=== PATIENT | male | born 1935 | race Caucasian/White ===

== ENCOUNTER 2018-12-03 20:23 | Observation (INO) | payer MEDICARE, BC ==
[2018-12-03 21:00] LABS: #Basophils 0.1 thou/uL (0.0-0.2); #Eosinphils 0.3 thou/uL (0.0-0.7); #Neutrophils 4.3 thou/uL (1.40-6.50); %Basophils 1.5 % (0.0-1.0); %Eosinophils 3.8 % (0.0-10.0); %Lymphocytes 15.5 % (21.0-51.0); %Monocytes 14.9 % (0.0-10.0); %Neutrophils 64.4 % (42.0-75.0); Hemoglobin 13.3 g/dL (14.0-18.0); Mean Corpuscular HGB CONC 34.5 g/dL (32.0-36.0); Mean Corpuscular Hemoglobin 32.3 pg (27.0-31.0); Mean Corpuscular Volume 93.6 fL (78.0-98.0); Mean Platelet Volume 8.7 fL (7.4-10.4); Platelet Count 215 thou/uL (130-400); Red Blood Cell (RBC) Count 4.11 mill/uL (4.70-6.10); White Blood Cell (WBC) Count 6.7 thou/uL (4.8-10.8)
--- NOTE | 2018-12-03 21:09 | RAD ---
2 views chest: 12/03/2018 COMPARISON: None HISTORY: Cough FINDINGS: Mild increased linear interstitial density with pulmonary hyperinflation suggesting air tra pping. Midline sternotomy wires, mediastinal clips, and transvenous AICD noted. No pneumothorax, pleural fluid, focal consolidation, or alveolar edema. There is degenerative change of the mid thoracic spine and there is atherosclerotic calcification of the abdominal aorta. IMPRESSION: Chronic-appearing findings as described above. No focal consolidation or alveolar edema.
[2018-12-03 21:14] LABS: ALT (SGPT) 75 U/L (8-55); AST (SGOT) 41 U/L (5-34); Albumin 3.9 g/dL (3.4-4.8); Alkaline Phosphatase 72 U/L (40-150); Anion Gap 15 mmol/L (10-20); BUN (Urea Nitrogen) 18 mg/dL (8.4-25.7); Bilirubin, Total 0.6 mg/dL (0.2-1.2); Calc. Creatinine Clearance 0 mL/min (70-130); Calcium 8.7 mg/dL (7.8-10.44); Carbon Dioxide 26 mmol/L (23-31); Chloride 100 mmol/L (98-107); Estimated GFR-MDRD 44; Globulin 3.1 g/dL (2.4-3.5); Glucose 111 mg/dL (83-110); Potassium 4.6 mmol/L (3.5-5.1); Sodium 136 mmol/L (136-145)
[2018-12-03] MEDS ORDERED: Albuterol Sulfate 2.5 mg/0.5 ml Neb ONE (21:38)
[2018-12-03] MEDS ORDERED: methylPREDNISolone Sod Succ/PF 125 MG/2 ML VIAL ONE (21:40)
[2018-12-03] MEDS ORDERED: Water For Inject, Bacteriostat 30 ML ONE (21:41)
[2018-12-04 00:22] VITALS: BMI 29.7
[2018-12-04 01:20] LABS: CKMB 4.1 ng/mL (0-6.6)
[2018-12-04] MEDS ORDERED: Albuterol Sulfate 2.5 mg/3 ml Neb NEB PRN (03:49)
[2018-12-04 08:55] VITALS: BP 117/61; TEMP 97.6
[2018-12-04] MEDS ORDERED: Finasteride 5 MG TAB PO SCH (09:00)
[2018-12-04] MEDS ORDERED: Loratadine 10 MG TAB PO SCH (09:00)
[2018-12-04] MEDS ORDERED: Apixaban 2.5 MG TAB PO SCH (09:00)
[2018-12-04] MEDS ORDERED: Atorvastatin Calcium 40 MG TAB PO SCH (09:00)
[2018-12-04] MEDS ORDERED: Donepezil HCl 10 MG TAB PO SCH (09:00)
[2018-12-04] MEDS ORDERED: Amiodarone 200 MG TAB PO SCH (09:00)
--- NOTE | 2018-12-04 10:29 | DIS ---
DATE OF ADMISSION: 12/03/2018 DATE OF DISCHARGE: 12/04/2018 CHIEF COMPLAINT: Cough. PRIMARY CARE PHYSICIAN: Dr. Fry in [place]. HAM CURER: Dr. Marie in [place]. SHORT-STAY SUMMARY: Mr. Contreras is an 83-year-old man, who reported to the emergency room in [facility] with an onset of cough and runny nose yesterday. The patient's spouse reports that he has had pneumonia 6 years ago, who reports they have been dealing with dehydration and he has been hospitalized twice in the last several months with this. Family reports that yesterday morning he had a productive cough of white phlegm, clear runny nose and congestion. He denied any fever. He reported a little bit of shortness of breath, clammy. Denied any chest pain. Denied any pain anywhere. Does wear oxygen at night. Does report some rhinorrhea. During evaluation in the ER, EKG showed paced rhythm, beats per minute 70, no ectopics. Good pacer capture. He was given Solu-Medrol, albuterol nebulizer, and a DuoNeb nebulizer. Chest x-ray showed chronic-appearing findings as described above. No focal consolidation or edema. Laboratory; troponin initially 0.042 x2 and then 0.28. BNP is 354.9, creatinine is 1.51. The patient's spouse reports that the creatinine is normal for him. We do not have any records as he sees physicians in [place], [place], but she reports that this is normal. She also reports that this troponin elevation she said that this is not uncommon for him, that when he gets any kind of in distress that his troponin slightly bumps and then always comes back to normal. On exam this morning, the patient was feeling significantly better. Both the patient and spouse report that he is back to his normal self and that they are very anxious to go home. The patient reports that they have a followup appointment with the wall scraper in the morning and they do not want to miss it. They also have 2 dogs in the car with them here and are anxious to get home, so the patient is subsequently discharged home. We will continue all his home medications. We did not make any changes and instructed to follow up with PCP within a week and wall scraper tomorrow as scheduled, and the patient was subsequently discharged home. ALLERGIES: NONE. HOME MEDICATIONS: 1. Cordarone 200 mg p.o. daily. 2. Eliquis 2.5 mg p.o. daily. 3. Lipitor 40 mg p.o. daily. 4. Aricept 10 mg p.o. daily. 5. Finasteride 5 mg p.o. daily. 6. Trelegy Ellipta one inhaler and inhalation daily. 7. Isosorbide 15 mg p.o. daily. 8. Claritin 20 mg p.o. daily. 9. Losartan 50 mg p.o. q.p.m. 10. p.o. daily. 11. Ranexa 500 mg p.o. daily. 12. Flomax 0.4 mg p.o. q.p.m. PAST MEDICAL HISTORY: He has had pneumonia in the past, cardiac history, congestive heart failure, myocardial infarction, stent placement, AICD 9, congestive heart failure. He has had a TIA, pulmonary disease, asthma, chronic obstructive pulmonary disease. PAST SURGICAL HISTORY: Bypass x3, four stents; left carotid surgery; AICD placement; hemorrhoidectomy; vasectomy. PSYCHIATRIC HISTORY: None. SOCIAL HISTORY: Denies any alcohol or drugs. No smoking history. Lives at home with his family. His is his primary caregiver. DISPOSITION: Home. DISPOSITION CONDITION: Stable. FOLLOWUP INSTRUCTIONS: Follow up with Dr. Fry within the next week. Follow up with Dr. Marie as scheduled tomorrow. I have asked the to make sure that the wall scraper is aware that his creatinine today was 1.51 and that he had 2 slightly bumped troponins, which came back to normal with no EKG changes. They were agreeable to this, and subsequently discharged home. Job ID: [id number]
[2018-12-04] MEDS ORDERED: Tamsulosin HCl 0.4 MG CAP PO SCH (21:00)
[2018-12-04] MEDS ORDERED: Losartan 25 MG TAB PO SCH (21:00)
== END 2018-12-04 09:31 | disposition home or self-care (01) ==
LOC: SCSER 20:23 → 2SW 22:00
PROVIDERS: ADMIT Hospitalist; ATTEND Hospitalist
DX: J44.1 Chronic obstructive pulmonary disease with (acute) exacerbation (principal); F03.90 Unspecified dementia, unspecified severity, without behavioral disturbance, psychotic disturbance, mood disturbance, and anxiety; I50.9 Heart failure, unspecified; I25.2 Old myocardial infarction; Z95.5 Presence of coronary angioplasty implant and graft; Z86.73 Personal history of transient ischemic attack (TIA), and cerebral infarction without residual deficits; Z87.01 Personal history of pneumonia (recurrent); Z79.51 Long term (current) use of inhaled steroids; Z79.01 Long term (current) use of anticoagulants; Z79.899 Other long term (current) drug therapy
CPT/HCPCS: 71046; 80053; 82553 ×2; 83605; 83880; 84484 ×3; 85025; 87040; 93005; 94640 ×2; 96374; 99285; G0378 ×3; 36415; J2930; J7611; J7620